=== PATIENT | male | born 1945 | race Caucasian/White ===

== ENCOUNTER 2017-10-17 03:35 | Emergency (ER) | payer MEDICARE, OTHER ==
[~2017-10-17] VITALS: Ht 172.7 cm; Wt 87.4 kg
[~2017-10-17 03:35] MED LIST: ASPIRIN EC81 MG PO; ECONAZOLE1 % EX; FISH OIL1000 MG PO; FLEXERIL PO; FLONASE NASAL50 MCG; MELOXICAM7.5 MG PO; METOPROL TAR25 MG PO; MUCINEX600 MG PO; MULTI VITAMIN MENS PO; NAPROSYN500 MG PO; SIMVASTATIN40 MG PO
[2017-10-17] MEDS ORDERED: TRAZODONE50 MG PO (03:49)
[2017-10-17] MEDS ORDERED: MIRTAZAPINE15 MG PO (03:50)
[2017-10-17 06:20] VITALS: BP 136/71
== END 2017-10-17 06:26 | disposition home or self-care (01) ==
LOC: ED 03:35
DX: S00.01XA Abrasion of scalp, initial encounter (principal); S40.212A Abrasion of left shoulder, initial encounter; I25.10 Atherosclerotic heart disease of native coronary artery without angina pectoris; W01.0XXA Fall on same level from slipping, tripping and stumbling without subsequent striking against object, initial encounter; Y92.008 Other place in unspecified non-institutional (private) residence as the place of occurrence of the external cause; Z95.0 Presence of cardiac pacemaker; Z95.1 Presence of aortocoronary bypass graft

== ENCOUNTER 2018-09-04 11:56 | Emergency (ER) | payer MEDICARE, OTHER ==
[~2018-09-04] VITALS: Ht 172.7 cm; Wt 80.5 kg
[~2018-09-04 11:56] MED LIST changes: +MIRTAZAPINE15 MG PO; +TRAZODONE50 MG PO
[2018-09-04 16:04] VITALS: BP 120/82
== END 2018-09-04 16:04 | disposition home or self-care (01) ==
LOC: ED 11:56
DX: I82.612 Acute embolism and thrombosis of superficial veins of left upper extremity (principal); I82.890 Acute embolism and thrombosis of other specified veins; I10 Essential (primary) hypertension; E78.5 Hyperlipidemia, unspecified; Z95.0 Presence of cardiac pacemaker; Z95.1 Presence of aortocoronary bypass graft

== ENCOUNTER → 2018-12-14 | Outpatient (REF) | payer MEDICARE, OTHER ==
[~2018-12-14] VITALS: Ht 172.7 cm; Wt 78.9 kg
[~2018-12-14] MED LIST changes: +ASPIRIN EC LOW81 MG PO; -ASPIRIN EC81 MG PO; +MULTI VIT PO
[2018-12-14 08:22] VITALS: BP 145/74
== END | disposition home or self-care (01) ==
LOC: ORM 12-13 12:00 → PO 07:57 → ORM 08:00
PROVIDERS: ATTEND Surgery
DX: Z01.818 Encounter for other preprocedural examination (principal); K62.5 Hemorrhage of anus and rectum; I25.10 Atherosclerotic heart disease of native coronary artery without angina pectoris; I10 Essential (primary) hypertension; Z87.891 Personal history of nicotine dependence; Z95.0 Presence of cardiac pacemaker; Z95.1 Presence of aortocoronary bypass graft; Z98.890 Other specified postprocedural states; Z72.89 Other problems related to lifestyle; R19.5 Other fecal abnormalities

== ENCOUNTER 2018-12-27 06:27 | Day surgery (SDC) | payer MEDICARE, OTHER ==
[2018-12-27 09:05] VITALS: BP 124/79
== END 2018-12-27 09:15 | disposition home or self-care (01) ==
LOC: ORM 06:27
PROVIDERS: ATTEND Surgery
PROC: 0DBP8ZX Excision of Rectum, Via Natural or Artificial Opening Endoscopic, Diagnostic (ICD-10-PCS; principal; 2018-12-27)
DX: K57.31 Diverticulosis of large intestine without perforation or abscess with bleeding (principal); D12.8 Benign neoplasm of rectum; I25.10 Atherosclerotic heart disease of native coronary artery without angina pectoris; Z95.1 Presence of aortocoronary bypass graft; Z79.82 Long term (current) use of aspirin

== ENCOUNTER 2022-12-20 08:48 | Day surgery (SDC) | payer MEDICARE, OTHER ==
[~2022-12-20] VITALS: Ht 172.7 cm; Wt 90.7 kg
[~2022-12-20 08:48] MED LIST changes: +DOCUSATE SOD100 MG PO; +FAMOTIDINE20 M1 PO; +FUROSEMIDE20 MG PO; +POTASSIUM CHLO10 MEQ PO; +SENNA-TABS8.6 MG PO; +WARFARIN5 MG PO
[2022-12-20 11:26] VITALS: BP 116/70
== END 2022-12-20 11:20 | disposition home or self-care (01) ==
LOC: ENDO 08:48 → ORM 11:15 → ENDO 11:20 → ORM 12:15
PROVIDERS: ATTEND Internal Medicine Gastroenterology
PROC: 0DB98ZX Excision of Duodenum, Via Natural or Artificial Opening Endoscopic, Diagnostic (ICD-10-PCS; principal; 2022-12-20)
PROC: 0DB78ZX Excision of Stomach, Pylorus, Via Natural or Artificial Opening Endoscopic, Diagnostic (ICD-10-PCS; 2022-12-20)
PROC: 0DB48ZX Excision of Esophagogastric Junction, Via Natural or Artificial Opening Endoscopic, Diagnostic (ICD-10-PCS; 2022-12-20)
DX: K29.50 Unspecified chronic gastritis without bleeding (principal); K21.00 Gastro-esophageal reflux disease with esophagitis, without bleeding; K44.9 Diaphragmatic hernia without obstruction or gangrene; Z95.0 Presence of cardiac pacemaker; Z79.01 Long term (current) use of anticoagulants